=== PATIENT | male | born 1975 | race Caucasian/White ===

== ENCOUNTER 2024-10-24 17:40 | Inpatient (IN) | payer OTHER ==
[~2024-10-24] VITALS: Ht 177.8 cm; Wt 83.7 kg
[2024-10-24] MEDS ORDERED: Ketorolac Tromethamine 15mg Vial IV ONE (18:05)
[2024-10-24] MEDS ORDERED: Ondansetron HCl 2 MG / ML 2ML Vial IV ONE (18:05)
[2024-10-24] MEDS ORDERED: FentaNYL Citrate 50 MCG/ML 2 ML Injection IV ONE (18:05)
[2024-10-24] MEDS ORDERED: propofoL 0.1 ML IV ONE (19:25)
[2024-10-24] MEDS ORDERED: FentaNYL Citrate 50 MCG/ML 2 ML Injection IV PRN ×2 (19:25→19:30)
[2024-10-24] MEDS ORDERED: Metoclopramide HCl 5MG / ML 2ML Vial IV PRN (19:30)
[2024-10-24] MEDS ORDERED: Ondansetron HCl 2 MG / ML 2ML Vial IV PRN (19:30)
[2024-10-24] MEDS ORDERED: OxyCODONE 5 mg/Acetamin 325 mg TABLET PO PRN (19:35)
[2024-10-24] MEDS ORDERED: NS 1,000 ML IV SCH (19:35)
[2024-10-24] MEDS ORDERED: NS 1,000 ML IV ONE (19:47)
[2024-10-24] MEDS ORDERED: Propofol 10mg/ml 20 ml Vial (Procedural) IV SCH (20:00)
[2024-10-24 20:35] LABS: BASOPHILS ABSOLUTE AUTO 0.03 K/mm3 (0.00-0.23); BASOPHILS PERCENT AUTO 0 % (0-2); EOSINOPHILS ABSOLUTE AUTO 0.01 K/mm3 (0.00-0.68); EOSINOPHILS PERCENT AUTO 0 % (0-6); Hematocrit 39.9 % (37.0-53.0); Hemoglobin 13.9 g/dL (13.5-17.5); IMMATURE GRAN ABSOLUTE AUTO 0.04 K/mm3 (0.00-0.10); IMMATURE GRAN PERCENT AUTO 0 % (0-1); LYMPHOCYTES ABSOLUTE AUTO 1.53 K/mm3 (0.84-5.20); LYMPHOCYTES PERCENT AUTO 13 % (21-46); MONOCYTES ABSOLUTE AUTO 0.84 K/mm3 (0.16-1.47); MONOCYTES PERCENT AUTO 7 % (4-13); Mean Corpuscular HGB Conc 34.8 g/dL (31.5-36.5); Mean Corpuscular Volume 89 fL (80-100); NEUTROPHILS ABSOLUTE AUTO 9.35 K/mm3 (1.96-9.15); NEUTROPHILS PERCENT AUTO 79 % (41-73); NRBC ABSOLUTE 0.00 K/mm3 (0.00-0.02); NRBC Auto 0.0 /100 WBC (0.0-0.2); Platelet Count 180 K/mm3 (150-400); RDW Coefficient Variation 12.2 % (11.7-14.2); RDW Standard Deviation 40.1 fL (35.1-46.3)
[2024-10-24 20:57] LABS: Anion Gap 10.0 mmol/L (3-11); Blood Urea Nitrogen 13.0 mg/dL (8-24); CO2, Blood 17.0 mmol/L (21-32); Calcium, Blood 8.4 mg/dL (8.5-10.1); Chloride, Blood 109.0 mmol/L (98-108); Creatinine, Blood 0.73 mg/dL (0.60-1.20); Glucose, Blood 98.0 mg/dL (70-99); Potassium, Blood 4.7 mmol/L (3.5-5.5); Sodium, Blood 131.0 mmol/L (136-145)
--- NOTE | 2024-10-24 23:05 | NUR ---
ADMIT PT ARRIVED TO 214 APPROX 2204. ADMITTED FOR TIB FIB FX. DENIES N/V OR DYSPNEA. REPORTS PAIN TO RLE 05/24 MEDICATED W/1 PERCOCET. RLE SPLINTED IN ER. ABLE TO WIGGLE TOES, CAP REFILL <3 SEC. DENIES N/T TO EXTREMITIES. ABLE TO FEEL TOUCH. PLAN TO HAVE SURGERY IN AM. ORIENTED TO & CALL LIGHT.
[2024-10-25] VITALS (13 sets, daily range): BP systolic 98–126; BP diastolic 58–81
--- NOTE | 2024-10-25 05:47 | NUR ---
SHIFT SUMMARY NO ACUTE CHANGES T/O NIGHT. PT IS A/OX4 WITH VSS. RLE IN SPLINT, CAP REFILL BRISK. PAIN MANAGED PER EMAR. ON BED REST. NPO SINCE MIDNIGHT. IVF INFUSING PER ORDERS. USING URINAL IND AT BEDSIDE. PLAN FOR SURGICAL INTERVETION TODAY. PT CURRENLY RESTING IN BED WITH EYES CLOSED AND RESP EVEN/UNLABORED. HAS CALL LIGHT IN REACH
[2024-10-25] MEDS ORDERED: CeFAZolin Sodium 2,000 MG in NS 100 ML IV SCH (07:00)
[2024-10-25] MEDS ORDERED: Tranexamic Acid 100 ML IV SCH (07:00)
[2024-10-25] MEDS ORDERED: Bupivacaine 0.5% W/EPI 1:200000 SDV 30 ML Vial ONE (12:27)
[2024-10-25] MEDS ORDERED: Ropivacaine 0.5% HCL/PF 5 MG/ML 30ML Vial ONE (13:18)
[2024-10-25] MEDS ORDERED: FentaNYL Citrate 50 MCG/ML 2 ML Injection ONE (13:20)
[2024-10-25] MEDS ORDERED: Midazolam HCl 1MG / ML 2ML Vial ONE (13:20)
--- NOTE | 2024-10-25 13:29 | NUR ---
PT HAS 20G IV TO LEFT AC THAT FLUSHES WELL AND FLOWS TO GRAVITY.
--- NOTE | 2024-10-25 13:37 | NUR ---
Pt brought from Surgical Floor to Day Surgery for procedure with Dr. Cameron. History, Chart, Medications and Allergies reviewed before start of procedure. Patient confirms NPO status and agrees with scheduled surgery. Pre-Op teaching done. Pt verbalizes understanding. Pt belongings left in personal room on Surgical Floor 214. Pt glasses taken to PACU for safekeeping.
--- NOTE | 2024-10-25 14:04 | NUR ---
1340: Dr. Jessica at bedside to perform preop nerve blocks in Day Surgery. Premeds given by Dr. Jessica, see anesthesia notes. 1341: Timeout complete by RN. 1346: Adductor nerve block time start. 1349: Adductor nerve block end time. 1356: Popliteal Sciatic nerve block start time. 1401: Popliteal Sciatic nerve block end time. Pt on 2L supplemental O2 via NC throughout procedure. VSS and monitored throughout procedure. Pt paramjit procedure well.
[2024-10-25] MEDS ORDERED: HYDROmorphone HCl/Pf 1MG SYR IV PRN ×2 (16:10→16:15)
[2024-10-25] MEDS ORDERED: Ketorolac Tromethamine 30mg Vial ONE (16:11)
[2024-10-25] MEDS ORDERED: Ondansetron HCl 2 MG / ML 2ML Vial IV PRN (16:15)
[2024-10-25] MEDS ORDERED: ePHEDrine Sulfate 50 MG/ML 1ML Injection IV PRN (16:15)
[2024-10-25] MEDS ORDERED: Albuterol 2.5 MG/3 ML VIAL INH PRN (16:15)
[2024-10-25] MEDS ORDERED: FentaNYL Citrate 50 MCG/ML 2 ML Injection IV PRN ×2 (16:15)
--- NOTE | 2024-10-25 18:44 | NUR ---
SHIFT SUMMARY POD0 R TIBIA GAMMA NAIL, A/OX4, VSS, TOLERATING PO, PAIN TOLERABEL THIS AM AND NO PAIN POST OP SO FAR, PER PACU REPORT HE GOT 2 BLOCKS RLE, CAP REFIL < 3 SECONDS RLE. POST OP VITALS STILL IN PROGRESS, NO CONCERNS AT THIS TIME. DISCUSSED POTENTIAL PLAN FOR TOMORROW HIGHLIGHTING THERAPY EVALUATION. NO ACUTE EVENTS AT THIS TIME, CALL LIGHT IN REACH.
[2024-10-26 05:17] VITALS: BP 113/63
[2024-10-26 05:38] LABS: BASOPHILS ABSOLUTE AUTO 0.01 K/mm3 (0.00-0.23); BASOPHILS PERCENT AUTO 0 % (0-2); EOSINOPHILS ABSOLUTE AUTO 0.00 K/mm3 (0.00-0.68); EOSINOPHILS PERCENT AUTO 0 % (0-6); Hematocrit 35.4 % (37.0-53.0); Hemoglobin 12.3 g/dL (13.5-17.5); IMMATURE GRAN ABSOLUTE AUTO 0.04 K/mm3 (0.00-0.10); IMMATURE GRAN PERCENT AUTO 0 % (0-1); LYMPHOCYTES ABSOLUTE AUTO 1.18 K/mm3 (0.84-5.20); LYMPHOCYTES PERCENT AUTO 9 % (21-46); MONOCYTES ABSOLUTE AUTO 1.00 K/mm3 (0.16-1.47); MONOCYTES PERCENT AUTO 7 % (4-13); Mean Corpuscular HGB Conc 34.7 g/dL (31.5-36.5); Mean Corpuscular Volume 90 fL (80-100); NEUTROPHILS ABSOLUTE AUTO 11.43 K/mm3 (1.96-9.15); NEUTROPHILS PERCENT AUTO 84 % (41-73); NRBC ABSOLUTE 0.00 K/mm3 (0.00-0.02); NRBC Auto 0.0 /100 WBC (0.0-0.2); Platelet Count 170 K/mm3 (150-400); RDW Coefficient Variation 12.1 % (11.7-14.2); RDW Standard Deviation 39.8 fL (35.1-46.3)
[2024-10-26 06:14] LABS: Anion Gap 10.0 mmol/L (3-11); Blood Urea Nitrogen 9.0 mg/dL (8-24); CO2, Blood 25.0 mmol/L (21-32); Calcium, Blood 8.5 mg/dL (8.5-10.1); Chloride, Blood 108.0 mmol/L (98-108); Creatinine, Blood 0.88 mg/dL (0.60-1.20); Glucose, Blood 122.0 mg/dL (70-99); Potassium, Blood 4.5 mmol/L (3.5-5.5); Sodium, Blood 138.0 mmol/L (136-145)
--- NOTE | 2024-10-26 06:39 | NUR ---
SHIFT SUMMARY POD 1 RLE RODDING R/T TIB/FIB FX. DRESSING/YANNICK WRAP CDI. DENIES SENTATION OR PAIN, REPORTS NUMBNESS POST OP FROM BLOCK. UNABLE TO WIGGLES RIGHT TOES, BRISK CAP REFILL. PT IS A/OX4. AWAITING OOB/AMBULATION, RLE NON WT BEARING. ABBEY PO INTAKE. IS VOIDING. PLAN TO WORK WITH THERAPY TODAY. PT RESTING IN BED WITH EYES CLOSED, RESP EVEN AND UNLABORED. HAS CALL LIGHT IN REACH.
[2024-10-26 07:20] VITALS: BP 113/76
[2024-10-26] MEDS ORDERED: Enoxaparin 40 MG/0.4 ML SYR SC SCH (09:00)
[2024-10-26] MEDS ORDERED: DOCU100 PO (12:28)
[2024-10-26] MEDS ORDERED: OXAYDO5 M1 PO (12:29)
[2024-10-26] MEDS ORDERED: SENNA LAXATIVE8.6 MG PO (12:30)
[2024-10-26] MEDS ORDERED: ENOX40I SC (12:31)
--- NOTE | 2024-10-26 14:42 | NUR ---
DISCHARGE SUMMARY POD1 R TIB GAMMA NAIL, A/OX4, VSS, TOLERATING PO, SENSATION RLE STARTING TO RETURN AND HE IS ABLE TO WIGGLE HIS TOES, DENIES PAIN AT TIME OF DISCHARGE AND IT HAS BEEN TOLERABLE SINCE SURGERY. IV ACCESS REMOVED DURING DC INSTRUCTIONS. DISCUSSED DISCHARGE INSTRUCTIONS INCLUDING HOME CARE, MEDICATIONS, AND FOLLOW UPS WITH [facility] [place]. HE WAS PROVIDED HIS SURGEONS CONTACT INFORMATION SHOULD HE HAVE QUESTIONS BEFORE GETTING LOCAL MD SET UP. NO QUESTIONS AT THIS TIME, ESCORTED OUT VIA WC TO PRIVATE AUTO TO GO HOME.
== END 2024-10-26 14:25 | disposition home or self-care (01) | DRG 493 ==
LOC: ER 17:40 → ERHOLD 19:27 → EDBD 19:27 → SURS 19:27
PROVIDERS: Nurse Practitioner Acute Care; Orthopaedic Surgery; Student in an Organized Health Care Education/Training Program; ADMIT Student in an Organized Health Care Education/Training Program
PROC: 0QSG04Z Reposition Right Tibia with Internal Fixation Device, Open Approach (ICD-10-PCS; 2024-10-25)
PROC: 0QSG36Z Reposition Right Tibia with Intramedullary Internal Fixation Device, Percutaneous Approach (ICD-10-PCS; principal; 2024-10-25 14:00)
DX: S82.241A Displaced spiral fracture of shaft of right tibia, initial encounter for closed fracture (principal); E87.1 Hypo-osmolality and hyponatremia; S82.51XA Displaced fracture of medial malleolus of right tibia, initial encounter for closed fracture; S82.61XA Displaced fracture of lateral malleolus of right fibula, initial encounter for closed fracture; S82.491A Other fracture of shaft of right fibula, initial encounter for closed fracture; D72.829 Elevated white blood cell count, unspecified; V92.09XA Drowning and submersion due to fall off unspecified watercraft, initial encounter; Y92.828 Other wilderness area as the place of occurrence of the external cause
CPT/HCPCS: 27752; 36415; 73590; 73610; 73700; 80048; 85025; 96374; 96375; 97110; 97116; 97162; 97530; 99152; 99285-25; A9270; J0690; J1650; J1885; J2250; J2405; J2704; J2795; J3010; J7030; J7120